=== PATIENT | female | born 1985 | race Two or more races ===

== ENCOUNTER 2018-12-23 11:48 | Observation (INO) | payer OTHER | END 2018-12-23 12:44 | disposition home or self-care (01) | LOC: FLD 11:48 | PROVIDERS: ADMIT Advanced Practice Midwife; ATTEND Advanced Practice Midwife | DX: O36.8130 Decreased fetal movements, third trimester, not applicable or unspecified (principal); Z3A.37 37 weeks gestation of pregnancy ==

== ENCOUNTER 2019-01-05 05:34 | Observation (INO) | payer OTHER ==
--- NOTE | 2019-01-05 09:47 | PDGENHP ---
History and Physical History and Physical: Care: [facility] HPI: Rica Jasso is a 33yo with IUP@ 39-2weeks that presents to L&D with complaints of leaking of fluid. She states she had a large gush of clear odorless fluid this morning at approximately 0400. She denies any regular or intense contractions. She denies any VB. She reports +FM. EDC: 01/10/19 which is based on LMP: 04/05/18 which is known and consistent with Ultrasound at 10 weeks. Her is complicated by: asthma (exercise induced), h/o pyelo, GBS+ Review of Systems: Constitutional: Denies any fever, chills, or fatigue HEENT: denies any visual changes, difficulty swallowing, hearing loss Cardiovascular: Denies any chest pain, palpitations, leg swelling Respiratory: denies any cough, wheezing, or shortness of breathe GI: Denies any nausea, vomiting, diarrhea, constipation : denies any dysuria, urgency, frequency, vaginal bleeding Musculoskeletal: denies any muscle or bone pain Skin: denies any rashes Neuro: denies any headache, seizures, lightheadedness, dizziness, or loss of consciousness Psychiatric: denies any depression, anxiety, or SI/HI thoughts HISTORY: Previous OB history: SAB x2 Past medical history: asthma Past surgical history: oral surgery. Social: Denies any alcohol, tobacco, or drug use. She is to [place]. 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 Family history: Not relevant Medications: PNV, magnesium Allergies (list reaction): keflex, mucinex LABS: Rh:O+ ABS: Neg Rubella: Immune HbsAg: NR HIV: NR VDRL: NR 1hr: 131 GC: Neg Chlamydia: Neg Pap: Normal GBS: + BMI: (prepreg) 27 PHYSICAL EXAM: Constitutional: WN, A&Ox3 HEENT: normocephalic atraumatic, supple Skin: Warm, dry, intact Heart: RRR, no murmur Chest: CTA-B Abdomen: Soft, nontender, gravid SVE: /th/high, negative pooling, negative nitrazine, negative valsalva Extremities: edema, negative homans sign Neuro: grossly normal Psych: normal affect assessment: FHT baseline 135-145 +accels, no decels, moderate variability Contractions: toco irregular wet prep: ferning negative Assessment: * 33yo with IUP@ 39-2wks * no evidence of SROM or labor * GBS + * cat 1 FHR tracing Plan: * d/c home at this time * FKC and labor prec discussed * keep next sched appt with FCM Today's visit was approximately 45 min, of which >50% of visit 30 min, was spent face to face with pt on direct counseling/coordination of care.
== END 2019-01-05 09:15 | disposition home or self-care (01) ==
LOC: FLD 05:34
PROVIDERS: ADMIT Advanced Practice Midwife; ATTEND Advanced Practice Midwife
DX: Z03.79 Encounter for other suspected maternal and fetal conditions ruled out (principal); Z3A.39 39 weeks gestation of pregnancy
CPT/HCPCS: 59025; G0378

== ENCOUNTER 2019-01-23 04:06 | Observation (INO) | payer OTHER ==
--- NOTE | 2019-01-23 10:28 | PDGENHP ---
History and Physical History and Physical: CARE: [facility] HPI: Patient is a 33 yo G 3 P 0 at 41.6 weeks ega who presented to labor and delivery at 0400 this am with regular painful contractions. Denied leaking fluid , and reported some light bloody show. FHTs reassuring cat 1. SVE /-3 - unchanged over 2 hour labor check. Patient was scheduled for IOL with balloon catheter and cytotec this evening. She is still having contractions but they are mild and 5 min apart. She is requesting cook catheter placement now. EDC: 01/07/19 which is based on LMP: 04/05/18 which is known and consistent with Ultrasound at 10 weeks. Her is complicated by: - Exercise induced asthma - GBS pos Review of Systems: Constitutional: Denies any fever, chills, or fatigue HEENT: denies any visual changes, difficulty swallowing, hearing loss Cardiovascular: Denies any chest pain, palpitations, leg swelling Respiratory: denies any cough, wheezing, or shortness of breathe GI: Denies any nausea, vomiting, diarrhea, constipation : denies any dysuria, urgency, frequency, vaginal bleeding Musculoskeletal: denies any muscle or bone pain Skin: denies any rashes Neuro: denies any headache, seizures, lightheadedness, dizziness, or loss of consciousness Psychiatric: denies any depression, anxiety, or SI/HI thoughts HISTORY: Previous OB history: SAB X2 Past medical history: exercise induced asthma Past surgical history: wisdom teeth Medications: PNV, magnesium Allergies (list reaction): keflex, mucinex LABS: Rh: O pos ABS: Neg Rubella: Immune HbsAg: NR HIV: NR VDRL: NR 1hr: 131 GC: Neg Chlamydia: Neg Pap: Normal GBS: pos BMI: (prepreg) 27 PHYSICAL EXAM: Constitutional: WN, A&Ox3 Skin: pink, warm and dry HEENT: normocephalic atraumatic, supple Heart: RRR, no murmur Chest: CTA-B Abdomen: Soft, nontender, gravid SVE: /-3 Extremities: sml edema, negative rl's sign Neuro: grossly normal Psych: normal affect assessment: Reassuring FHTs, baseline 130s +accels, no decels, moderate variability Contractions: toco q 5 Assessment: 1) 33 yo G 3 P 0 with IUP@ 41.3 weeks ega 2) early latent phase labor 3) GBS pos 4) Cat 1 FHR tracing 5) Unsuccessful attempt to place cook catheter - cervix is to posterior too visualize with speculum after multiple attempts and patient discomfort Plan: Patient is tired with little sleep during the night. Reviewed pros/cons of starting IOL now, or going home to try to get some rest and returning this evening for cytotec if labor has not progressed. Would like to go home and rest - will give a dose of po Vistaril before discharge with labor precautions reviewed. Will return at 2200 for cytotec if necessary. Patient and feel comfortable with POC.
[2019-01-23] MEDS ORDERED: hydrOXYzine HCL 50 MG TAB PO SCH (10:30)
== END 2019-01-23 11:05 | disposition home or self-care (01) ==
LOC: FLD 04:06
PROVIDERS: ADMIT Advanced Practice Midwife; ATTEND Advanced Practice Midwife
PROC: 8E0UXY7 Examination of Female Reproductive System (ICD-10-PCS; principal; 2019-01-23)
DX: O48.0 Post-term pregnancy (principal); O99.820 Streptococcus B carrier state complicating pregnancy; O99.89 Other specified diseases and conditions complicating pregnancy, childbirth and the puerperium; J45.990 Exercise induced bronchospasm; Z3A.41 41 weeks gestation of pregnancy
CPT/HCPCS: 59025; 59200; G0378

== ENCOUNTER 2019-01-23 22:00 | Inpatient (IN) | payer OTHER ==
--- NOTE | 2019-01-23 19:41 | PDGENHP ---
History and Physical History and Physical: CARE: [facility] HPI: Patient is a 33 yo G 3 P 0 at 41.6 weeks ega who presents to labor and delivery for IOL due to post dates. She reports good activity, denies LOF , VB, or regular painful contractions. Attempt to place cook catheter this morning was unsuccessful, so will plan to give cytotec q 4 hours tonight for cervical ripening. EDC: 01/07/19 which is based on LMP: 04/05/18 which is known and consistent with Ultrasound at 10 weeks. Her is complicated by: - Exercise induced asthma - GBS pos Review of Systems: Constitutional: Denies any fever, chills, or fatigue HEENT: denies any visual changes, difficulty swallowing, hearing loss Cardiovascular: Denies any chest pain, palpitations, leg swelling Respiratory: denies any cough, wheezing, or shortness of breathe GI: Denies any nausea, vomiting, diarrhea, constipation : denies any dysuria, urgency, frequency, vaginal bleeding Musculoskeletal: denies any muscle or bone pain Skin: denies any rashes Neuro: denies any headache, seizures, lightheadedness, dizziness, or loss of consciousness Psychiatric: denies any depression, anxiety, or SI/HI thoughts HISTORY: Previous OB history: SAB X2 Past medical history: exercise induced asthma Past surgical history: wisdom teeth Medications: PNV, magnesium Allergies (list reaction): keflex, mucinex LABS: Rh: O pos ABS: Neg Rubella: Immune HbsAg: NR HIV: NR VDRL: NR 1hr: 131 GC: Neg Chlamydia: Neg Pap: Normal GBS: pos BMI: (prepreg) 27 PHYSICAL EXAM: Constitutional: WN, A&Ox3 Skin: pink, warm and dry HEENT: normocephalic atraumatic, supple Heart: RRR, no murmur Chest: CTA-B Abdomen: Soft, nontender, gravid SVE: /-3 earlier today Extremities: sml edema, negative rl's sign Neuro: grossly normal Psych: normal affect assessment: Reassuring FHTs, baseline 130s +accels, no decels, moderate variability Contractions: toco q 5 Assessment: 1) 33 yo G 3 P 0 with IUP@ 41.6 weeks ega 2) IOL for postdates 3) GBS pos 4) Cat 1 FHR tracing 5) SVE /-2, vertex earlier today Plan: 1. Admit to Labor and Delivery 2. Diet as tolerated 3. Cytotec q 4 hours per protocol 4. Ambien for sleep 5. Reassess in am if not laboring - pitocin if indicated 6. Pain control as patient desires
[2019-01-23] MEDS ORDERED: OXYTOCIN/RINGERS LACTATE 1,000 ML IV PRN (22:21)
[2019-01-23] MEDS ORDERED: LIDOCAINE 1% 300 MG/30 ML SDV SC PRN (22:21)
[2019-01-23] MEDS ORDERED: MISOPROSTOL 200 MCG TAB PR PRN (22:21)
[2019-01-23] MEDS ORDERED: LR 1,000 ML IV PRN (22:21)
[2019-01-23] MEDS ORDERED: OLIVE OIL 118 ML BTL MISC PRN (22:21)
[2019-01-23] MEDS ORDERED: IBUPROFEN 600 MG TAB PO PRN (22:21)
[2019-01-23] MEDS ORDERED: EPSOM SALT 454 GM TP PRN (22:21)
[2019-01-23] MEDS ORDERED: ZOLPIDEM TARTRATE 5 MG TAB PO PRN (22:21)
[2019-01-23] MEDS: MISOPROSTOL 50 MCG CAP PO SCH (22:50)
[2019-01-23] MEDS ORDERED: LIDOCAINE 1% 300 MG/30 ML SDV ONE (23:07)
[2019-01-23] MEDS ORDERED: AMMONIA AROMATIC 1 EACH AMP IH ONE (23:08)
[2019-01-23] MEDS ORDERED: OXYTOCIN 10 UNIT/ML VIAL ONE (23:08)
[2019-01-23] MEDS ORDERED: MISOPROSTOL 200 MCG TAB ONE (23:08)
[2019-01-23] MEDS ORDERED: OLIVE OIL 118 ML BTL MISC ONE (23:08)
[2019-01-23] MEDS ORDERED: TERBUTALINE SULFATE 1 MG/ML VIAL ONE (23:08)
[2019-01-24] LABS: PLATELET COUNT 125.4 10^3/uL (150-400)
[2019-01-24] MEDS: MISOPROSTOL 50 MCG CAP PO SCH ×3 (03:03→16:36)
[2019-01-24] MEDS ORDERED: PENICILLIN G POTASSIUM 5,000,000 UNIT in D5W 150 ML IV ONE (06:39)
--- NOTE | 2019-01-24 09:10 | OBPROG ---
Labor Progress Note Assessment/Plan: Assessment: 33 y/o at 42 weeks ega Active labor after 2 doses of cytotec Category 1 efm Cntx q2-4 mod/firm SVE 02/24-/-2 AROM with exam - mod amt yellow/bld tinged fluid Plan: Intermittent monitoring per protocol Pain control as patient desires Getting into tub for hydrotherapy Anticipate 01/24/19 09:41 Subjective/Intrapartum Course: 01/24/19 09:41 Breathing well with contractions - although very uncomfortable. Hands and knees position Objective: 01/23/19 23:30 Patient ABO/Rh O POSITIVE 01/23/19 22:39 - SVE Dilation (cm): 6 Effacement (%): 80 Station: -2 Membranes: AROM (with exam ) Amniotic Fluid Color: Clear, Bloody - Contraction Pattern Assessment Current Contraction Pattern: Regular Oxytocin Orders Assessment - Pre-Induction/Augmentation Assessment Gestational Age: 41 week(s) and 6 day(s) ICD10 Worksheet Patient Problems: Problems Problem Status Onset Encounter for induction of labor Acute Post-dates Acute Decreased movement affecting management of in third trimester Acute - ICD10 Problem Qualifiers (1) Post-dates (2) Encounter for induction of labor
[2019-01-24] MEDS: PENICILLIN G POTASSIUM 2,500,000 UNIT in D5W 150 ML IV SCH ×2 (11:04→16:36)
[2019-01-24] MEDS ORDERED: fentaNYL 100 MCG/2 ML INJ ONE (12:42)
[2019-01-24] MEDS ORDERED: ACETAMINOPHEN 325 MG TAB ONE (13:23)
--- NOTE | 2019-01-24 13:51 | OBDEL ---
Info Type: Vaginal Presentation at Delivery: Vertex L&D Analgesia/Anesthesia Type: Nitrous GBS+: Yes Antibiotic Used for + GBS: Ampicillin (PCN G) Intrapartum Medications: Generic Name Dose Route Start Last Admin Trade Name Freq PRN Reason Stop Dose Admin Lactated Ringer's 1,000 mls @ 0 mls/hr 01/23/19 22:21 01/24/19 07:11 Lr IV 01/24/19 22:20 1,000 mls PRN PRN Administration SEE PROTOCOL CONDITIONS Protocol Per Protocol Penicillin G Potassium 2,500, 155 mls @ 155 mls/hr 01/24/19 11:00 01/24/19 11 :04 000 unit/ Dextrose IV 02/23/19 10:59 155 mls Q4H CECILIA Administration Protocol Misoprostol 50 mcg 01/23/19 22:21 01/24/19 03:03 Cytotec PO 07/22/19 22:20 50 mcg Q4 CECILIA Administration Zolpidem Tartrate 5 mg 01/23/19 22:21 01/23/19 23:05 Ambien PO 07/22/19 22:20 5 mg HS PRN Administration Sleep/Insomnia Discontinued Medications Generic Name Dose Route Start Last Admin Trade Name Freq PRN Reason Stop Dose Admin Penicillin G Potassium 5,000, 160 mls @ 160 mls/hr 01/24/19 06:39 01/24/19 07 :11 000 unit/ Dextrose IV 01/24/19 07:38 160 mls ONCE ONE Administration Protocol Ibuprofen 600 mg 01/23/19 22:21 01/24/19 13:30 Motrin PO 600 mg ONCE PRN Administration post , pain - Hospital Course Intrapartum: 01/24/19 09:41 Breathing well with contractions - although very uncomfortable. Hands and knees position Indications for Delivery: Postterm Unfavorable Cervix Vaginal Delivery - Delivery Provider Delivery Physician/CNM: Myrna Avery - Labor and Delivery Onset of Contractions Date: 01/24/19 Onset of Contractions Time: 05:00 Onset of Contractions Type: Induced Rupture of Membranes Date: 01/24/19 Rupture of Membranes Time: 09:19 Rupture of Membranes Type: Artificial Amniotic Fluid Color: Clear, Bloody Dilation Complete Date: 01/24/19 Dilation Complete Time: 12:07 Placenta Delivery Date: 01/24/19 Placenta Delivery Time: 12:51 Total Hours of Labor: 7 Laceration: 1st Degree (vaginal), Other (Specify) (1st degree vaginal, left labial (both hemostatic and not repaired)) Vaginal Sponge Count Correct: Yes Vaginal Needle Count Correct: Yes Vaginal Sweep Performed: Yes EBL: 300 Delivery Events: Retained Placenta (Dr Areli Reese consulted due to retained placenta - see addtl note) Delivery Comment: Retained placenta - Dr Areli Reese called to bedside at 30 minutes after of baby to evaluate for manual removal. See consult note - Medications Labor Augmentation/Induction Methods Used: Misoprostol Labor Augmentation/Induction Indication: Post Dates Data SULLY: 01/10/19 Gestational Age: 42 week(s) and 0 day(s) Jensen Delivery Date: 01/24/19 Delivery Time: 12:07 Sex of Infant: Female Score (1 Min): 8 Score (5 Min): 9 ICD10 Worksheet Patient Problems: Problems Problem Status Onset Encounter for induction of labor Acute Post-dates Acute Retained placenta Acute Decreased movement affecting management of in third trimester Acute - ICD10 Problem Qualifiers (1) Post-dates (2) Encounter for induction of labor (3) Retained placenta
[2019-01-24] MEDS ORDERED: HYDROCORTISONE 0.5% CREAM TP PRN (13:52)
[2019-01-24] MEDS ORDERED: HYDROCODONE/APAP 5/325 TAB PO PRN (13:52)
[2019-01-24] MEDS ORDERED: SIMETHICONE 80 MG TAB CHEW PO PRN (13:52)
--- NOTE | 2019-01-24 14:56 | GOP ---
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 I was called into the room to evaluate for a retained placenta followi ng spontaneous vaginal delivery, delivered by retail attendant. Placenta had been retained for 30 minutes. T he Pitocin was running. The Pitocin was discontinued. The patient's bladder w as drained. The patient was given 50 mcg of fentanyl and inhaled nitrous oxide. Gentle traction was not able to remove the placenta, so a manual extraction of the placenta was performed. The patient tolerated the procedure. A bedside ultrasound was performed following the procedure, and no obvious retained products of conception or placental tissue was noted. The placenta did appear to be intact. The Pitocin was then restarted and the uterus was noted to be firm and with appropriate bleeding po stpartum. Procedure risks were reviewed with the patient and will be followed by the retail attendant and us as needed. /[id number]/MODL
[2019-01-24] MEDS ORDERED: fentaNYL 100 MCG/2 ML INJ IVP PRN (16:40)
[2019-01-24] MEDS: IBUPROFEN 600 MG TAB PO PRN (19:32)
[2019-01-24] MEDS: FERROUS SULFATE 325 MG TAB PO SCH (19:32)
[2019-01-24] MEDS: DOCUSATE SODIUM 100 MG CAP PO PRN (19:32)
[2019-01-24] MEDS: ACETAMINOPHEN 325 MG TAB PO PRN (19:33)
[2019-01-25] MEDS: IBUPROFEN 600 MG TAB PO PRN ×4 (01:00→19:23)
[2019-01-25] MEDS: ACETAMINOPHEN 325 MG TAB PO PRN ×3 (01:00→19:24)
[2019-01-25] MEDS: DOCUSATE SODIUM 100 MG CAP PO PRN ×2 (10:36→20:35)
[2019-01-25] MEDS: FERROUS SULFATE 325 MG TAB PO SCH ×2 (10:36→20:35)
--- NOTE | 2019-01-25 22:15 | OBPP ---
Progress Note Assessment/Plan: Assessment: 33yo s/p PPD#1 Plan: routine pp care support PRN plan d/c home tomorrow Subjective/ Course: 01/25/19 12:45 Pt doing well, resting well in bed. family @ BS. She reports , but baby has dysfunctional latch, plans to work with today. She denies any pain. she is voiding and ambulating without difficulty. Objective: 01/25/19 04:30 Patient ABO/Rh O POSITIVE 01/23/19 22:39 Temp Pulse Resp BP Pulse Ox 36.3 C 80 17 117/79 98 01/25/19 20:00 01/25/19 20:00 01/25/19 20:00 01/25/19 20:00 01/25/19 20:00 Uterine Position/Fundal Height: Umbilicus -1, Midline Uterine Tone: Firm
[2019-01-26] MEDS: MISOPROSTOL 50 MCG CAP PO SCH (00:25)
[2019-01-26] MEDS: IBUPROFEN 600 MG TAB PO PRN ×2 (03:07→09:22)
[2019-01-26] MEDS: ACETAMINOPHEN 325 MG TAB PO PRN ×2 (03:07→09:22)
[2019-01-26 08:41] VITALS: BP 113/81
--- NOTE | 2019-01-26 08:50 | OBGCSDC ---
General Delivery Information - General Info : 3 Para: 1 Abortions: 2 Type: Vaginal L&D Analgesia/Anesthesia Type: Nitrous Admission Date: 01/23/19 Labs: Patient ABO/Rh O POSITIVE 01/23/19 22:39 Hct 33.2 % (38.0-47.0) L 01/25/19 04:30 - Hospital Course Intrapartum: 01/24/19 09:41 Breathing well with contractions - although very uncomfortable. Hands and knees position : 01/25/19 12:45 Pt doing well, resting well in bed. family @ BS. She reports , but baby has dysfunctional latch, plans to work with today. She denies any pain. she is voiding and ambulating without difficulty. 01/26/19 08:49 S) Pt doing well, reports min pain and bleeding. she is ambulating and voiding without difficulty. She is . She desires discharge home today. O) VSS, afebrile constitutional: WNWF, A&Ox3 HEENT: normocephalic, atraumatic, supple Heart: RRR, No murmur Chest: CTA-B Abdomen: Soft, nontender Uterus: Firm at U-2 Lochia: Minimal rubra Perineum: Intact, healing well Extremities: Trace edema, and negative Rene's sign Neuro: Grossly normal A) 33 year-old S/P PPD#2 anemia P) Discharge home today Continue Daily iron Pelvic rest x6wks Discussed danger signs (infection, preeclampsia, depression, heavy bleeding, etc) RTO in 2/4/6 weeks Vaginal - Delivery Provider Delivery Physician/CNM: Myrna Avery - Diagnosis Labor: Induced Rupture of Membranes Type: Artificial Amniotic Fluid Color: Clear, Bloody Laceration: 1st Degree (vaginal), Other (Specify) (1st degree vaginal, left labial (both hemostatic and not repaired)) Delivery Events: Retained Placenta (Dr Areli Reese consulted due to retained placenta - see addtl note) - Delivery EBL: 300 [place] Data SULLY: 01/10/19 Gestational Age: 42 week(s) and 2 day(s) Jensen Delivery Date: 01/24/19 Delivery Time: 11:07 Sex of : Female Weight (gm): 3814 kg Score (1 Min): 8 Score (5 Min): 9 Discharge Information - Discharge Information Prescriptions: Ibuprofen [Motrin (*)] 600 mg PO Q6HRS PRN #40 tab PRN Reason: Pain, Mild Able To Take Po Ferrous Sulfate [Ferrous Sulf 325 MG (*)] 325 mg PO DAILY #60 tab Condition: Good
[2019-01-26] MEDS: FERROUS SULFATE 325 MG TAB PO SCH (09:22)
[2019-01-26] MEDS: DOCUSATE SODIUM 100 MG CAP PO PRN (09:25)
== END 2019-01-26 16:30 | disposition home or self-care (01) | DRG 807 ==
LOC: FLD 22:13 → FOB 01-24 15:25
PROVIDERS: ADMIT Advanced Practice Midwife; ATTEND Advanced Practice Midwife
PROC: 3E0P7GC Introduction of Other Therapeutic Substance into Female Reproductive, Via Natural or Artificial Opening (ICD-10-PCS; principal; 2019-01-23)
PROC: 10E0XZZ Delivery of Products of Conception, External Approach (ICD-10-PCS; principal; 2019-01-23)
PROC: 0HQ9XZZ Repair Perineum Skin, External Approach (ICD-10-PCS; principal; 2019-01-23)
PROC: 10907ZC Drainage of Amniotic Fluid, Therapeutic from Products of Conception, Via Natural or Artificial Opening (ICD-10-PCS; principal; 2019-01-23)
PROC: 10D17Z9 Manual Extraction of Products of Conception, Retained, Via Natural or Artificial Opening (ICD-10-PCS; 2019-01-23)
DX: O48.1 Prolonged pregnancy (principal); O70.0 First degree perineal laceration during delivery; O73.0 Retained placenta without hemorrhage; O99.820 Streptococcus B carrier state complicating pregnancy; Z3A.40 40 weeks gestation of pregnancy; Z37.0 Single live birth
CPT/HCPCS: J2540; J2590; J3010; J3105